=== PATIENT | female | born 1960 | race Caucasian/White ===

== ENCOUNTER 2017-02-28 19:05 | Emergency (ER) | payer MEDICARE, MEDICAID ==
[~2017-02-28] VITALS: Ht 167.6 cm; Wt 70.3 kg
[~2017-02-28 19:05] MED LIST: AMLO10TA2 PO; ATOR40TA52 PO; ATROVENT INH; CHOL1CAP50 PO; CITA-77 PO; DIVA500T12 PO; DIVA500T4 PO; EMPA1TAB PO; FLUT500M6; FURO40TA4 PO; GLIP1TAB38 PO; HYDR50CA2 PO; IBUP800T24 PO; IPRAAER5; LEVO-28 PO; LEVO125T66 PO; LISI40TA PO; METF-370 PO; METO-169 PO; NICOINH INH; OMEP20CA74 PO; POTA-167 PO; PRA25T GT; PRAM0.12; SIMV-13
[2017-02-28 21:38] LABS: Basophils # (auto) 0.1 uL; Basophils % (auto) 0.6 % (0.0-2.0); CONDITION Y; Eosinophils # (auto) 0.1 uL; Eosinophils % (auto) 1.1 % (0.0-7.0); Hematocrit 46.8 % (36.0-46.0); Hemoglobin 15.6 g/dL (12.2-16.2); Lymphocytes # (auto) 5.4 uL; Mean Corpuscular Hemoglobin 30.3 pg (28.0-32.0); Mean Corpuscular Hgb Conc. 33.3 g/dL (32.0-36.0); Mean Platelet Volume 11.4 fL (7.4-10.4); Monocytes # (auto) 0.8 uL; Monocytes % (auto) 6.8 % (0.0-12.0); Neutrophils # (auto) 5.9 uL; Neutrophils % (auto) 47.5 % (37.0-80.0); Platelet Count (auto) 222 10^3/uL (140-450); Red Cell Distribution Width 14.3 % (11.6-16.0); White Blood Cell 12.4 10^3/uL (4.4-10.8)
[2017-02-28 21:55] LABS: Albumin 3.2 g/dL (3.4-5.0); Anion Gap 12 (5-15); Aspartate Aminotransferase 21 U/L (15-37); BUN/Creatinine Ratio 21.3; Blood Urea Nitrogen 19 mg/dL (7-18); Calcium 8.8 mg/dL (8.5-10.1); Carbon Dioxide 25 mmol/L (21-32); Chloride 107 mmol/L (98-107); GFR African American 84 mL/min; GFR Non-African American 70 mL/min; Glucose 158 mg/dL (74-106); Magnesium 2.2 mg/dL (1.6-2.6); Potassium 3.4 mmol/L (3.5-5.1); Sodium 144 mmol/L (136-145)
[2017-02-28 22:00] LABS: Alkaline Phosphatase 91 U/L (45-117); Bilirubin, Total 0.3 mg/dL (0.2-1.0); Total Protein 6.4 g/dL (6.4-8.2)
[2017-03-01 01:29] LABS: Urine Bilirubin Negative (Negative); Urine Blood TRACE /uL (Negative); Urine Color Yellow (Yellow); Urine Glucose 4+ mg/dL (Normal); Urine Hyaline Cast FEW /lpf (0 - 2); Urine Ketone TRACE (Negative); Urine Mucus FEW (None Seen); Urine Nitrite Negative (Negative); Urine RBC 2 /hpf (0 - 4); Urine Squamous Epithelial Cell FEW /hpf (<5)
[2017-03-01 01:47] LABS: Amylase 27 U/L (25-115)
[2017-03-01 06:06] VITALS: BP 137/82
== END 2017-03-01 06:59 | disposition home or self-care (01) ==
LOC: EDBD 19:05 → ER 19:10
DX: J44.1 Chronic obstructive pulmonary disease with (acute) exacerbation (principal); E66.01 Morbid (severe) obesity due to excess calories; F17.210 Nicotine dependence, cigarettes, uncomplicated; F12.10 Cannabis abuse, uncomplicated; J44.9 Chronic obstructive pulmonary disease, unspecified; E11.9 Type 2 diabetes mellitus without complications; E78.5 Hyperlipidemia, unspecified; I10 Essential (primary) hypertension; E07.89 Other specified disorders of thyroid; Z98.51 Tubal ligation status; Z68.41 Body mass index [BMI] 40.0-44.9, adult
CPT/HCPCS: 36415; 51702; 74176; 80053; 80307; 81001; 82150; 83690; 83735; 84484; 85025; 93005; 94660

== ENCOUNTER 2017-03-20 16:57 | Emergency (ER) | payer MEDICARE, MEDICAID ==
[~2017-03-20] VITALS: Ht 162.6 cm; Wt 146.5 kg
[2017-03-20 21:32] VITALS: BP 168/65
== END 2017-03-20 23:02 | disposition home or self-care (01) ==
LOC: EDBD 16:57 → ER 17:02
DX: I10 Essential (primary) hypertension (principal); E66.01 Morbid (severe) obesity due to excess calories; J44.9 Chronic obstructive pulmonary disease, unspecified; I11.0 Hypertensive heart disease with heart failure; I50.9 Heart failure, unspecified; E11.9 Type 2 diabetes mellitus without complications; E78.5 Hyperlipidemia, unspecified; Z98.51 Tubal ligation status; Z68.43 Body mass index [BMI] 50.0-59.9, adult; Z90.89 Acquired absence of other organs; F17.210 Nicotine dependence, cigarettes, uncomplicated; F12.10 Cannabis abuse, uncomplicated; Z79.899 Other long term (current) drug therapy; Z88.6 Allergy status to analgesic agent
CPT/HCPCS: 70450; 82962

== ENCOUNTER 2017-06-12 12:03 | Inpatient (IN) | payer MEDICARE, MEDICAID ==
[~2017-06-12] VITALS: Ht 162.6 cm; Wt 140.5 kg
[2017-06-12] MEDS ORDERED: ALBUTEROL SULF 2.5 MG/0.5ML(0.5%) NEB SOLN HHN ONE (12:15)
[2017-06-12] MEDS ORDERED: IPRATROPIUM BROM 0.5 MG/2.5ML INH SOL HHN ONE (12:15)
[2017-06-12] MEDS ORDERED: methylPREDNISolone SOD SUCC 125 MG/2 ML VL IV ONE (12:15)
[2017-06-12 12:59] LABS: Basophils # (auto) 0.1 uL; Basophils % (auto) 0.6 % (0.0-2.0); Eosinophils # (auto) 0 uL; Eosinophils % (auto) 0.1 % (0.0-7.0); Hematocrit 36.7 % (36.0-46.0); Lymphocytes # (auto) 4.1 uL; Lymphocytes % (auto) 20.5 % (10.0-50.0); Mean Corpuscular Hemoglobin 30.5 pg (28.0-32.0); Mean Corpuscular Hgb Conc. 32.6 g/dL (32.0-36.0); Mean Corpuscular Volume 93.5 fL (80.0-100.0); Mean Platelet Volume 10.9 fL (6.9-10.8); Monocytes % (auto) 9.7 % (0.0-12.0); Neutrophils % (auto) 69.1 % (37.0-80.0); Nucleated Red Blood Cells % 0.1 %; Platelet Count (auto) 271 10^3/uL (140-450); Red Cell Distribution Width 14.3 % (11.8-14.3); White Blood Cell 20.2 10^3/uL (4.4-10.8)
[2017-06-12 13:16] LABS: Lactic Acid w/Reflex 2.1 mmol/L (0.4-2.0)
[2017-06-12 13:17] LABS: REFLEX LACTIC ACID YES OR NO YES
[2017-06-12] MEDS ORDERED: LEVOFLOXACIN 750MG 150 ML IV ONE (13:30)
[2017-06-12 13:32] LABS: Anion Gap 9 (5-15); Aspartate Aminotransferase 61 U/L (15-37); BUN/Creatinine Ratio 14.1; Blood Urea Nitrogen 9 mg/dL (7-18); Calcium 8.4 mg/dL (8.5-10.1); Carbon Dioxide 29 mmol/L (21-32); Chloride 94 mmol/L (98-107); GFR African American 123 mL/min; GFR Non-African American 102 mL/min; Glucose 141 mg/dL (74-106); Magnesium 2.3 mg/dL (1.6-2.6); Sodium 132 mmol/L (136-145)
[2017-06-12 13:36] LABS: Alkaline Phosphatase 198 U/L (45-117); Bilirubin, Total 1.2 mg/dL (0.2-1.0)
[2017-06-12 13:45] LABS: Temperature: 21.5 C (20.0-25.0)
[2017-06-12] MEDS ORDERED: ACETAMINOPHEN 325 MG TAB PO ONE (13:45)
[2017-06-12] MEDS ORDERED: DILT240C PO (14:14)
[2017-06-12] MEDS ORDERED: IPRAAER6 IN (14:14)
[2017-06-12] MEDS ORDERED: ALBUAER3 IN (14:14)
[2017-06-12] MEDS ORDERED: FLUT250M2 INH (14:14)
[2017-06-12] MEDS ORDERED: IPRA0.03 (14:14)
[2017-06-12] MEDS ORDERED: PALI9TAB2 PO (14:14)
[2017-06-12] MEDS ORDERED: INSDRIP IV (14:14)
[2017-06-12] MEDS ORDERED: INSLANTI SC (14:14)
[2017-06-12] MEDS ORDERED: AZITHROMYCIN 500MG/ 250ML 250 ML IV ONE (14:30)
[2017-06-12] MEDS ORDERED: DOCUSATE SOD 100 MG CAP PO PRN (14:30)
[2017-06-12] MEDS ORDERED: cefTRIAXone 1GM/10ml IVPUSH 10 ML IV ONE (14:30)
[2017-06-12] MEDS ORDERED: ACETAMINOPHEN 500 MG TAB PO PRN (14:30)
[2017-06-12] MEDS ORDERED: ONDANSETRON HCL 4 MG/2 ML VIAL IV PRN (14:30)
[2017-06-12] MEDS: PANTOPRAZOLE 40 MG/10 ML VIAL IV SCH (14:49)
[2017-06-12] MEDS ORDERED: FUROSEMIDE 40 MG TAB PO ONE (15:15)
[2017-06-12] MEDS ORDERED: POTASSIUM CHL 20 Meq TABLET PO ONE (15:15)
[2017-06-12] MEDS: ENOXAPARIN SOD 40 MG/0.4 ML SYRINGE SC SCH (15:34)
[2017-06-12] MEDS: MORPHINE SULF INJ 2 MG/ML SYRINGE 1ML IV PRN ×2 (15:55→23:27)
[2017-06-12] MEDS ORDERED: DEXTROSE (50%) 50ML SYRG IV PRN (16:30)
[2017-06-12] MEDS: InsuLIN REG 1unit/0.01ml Soln (100units/ml) SC SCH (17:27)
[2017-06-12] MEDS: ACCU-CHEK COMFORT CURVE STRIP VI SCH (17:27)
[2017-06-12] MEDS: IPRATROPIUM BROM 0.5 MG/2.5ML INH SOL NEB SCH ×2 (19:50→23:50)
[2017-06-12] MEDS: ALBUTEROL SULF 2.5 MG/0.5ML(0.5%) NEB SOLN NEB SCH ×2 (19:50→23:50)
[2017-06-12] MEDS: BUDESONIDE (INHALATION) 0.5 MG/2 ML NEB NEB SCH (19:50)
[2017-06-12 21:45] VITALS: BP 125/76
[2017-06-12] MEDS: methylPREDNISolone SOD SUCC 40 MG/ML VL IV SCH (23:20)
[2017-06-12] MEDS: ATORVASTATIN 20 MG TAB PO SCH (23:21)
[2017-06-12] MEDS: PRAMIPEXOLE DIHYDROCHLORIDE MO 0.25 MG TAB PO SCH (23:21)
[2017-06-12] MEDS: INSULIN DETEMIR(LEVEMIR) 1unit/0.01ml Soln (100units/ml) SC SCH (23:21)
[2017-06-13] VITALS (7 sets, daily range): BP systolic 104–118; BP diastolic 63–79
[2017-06-13] MEDS: InsuLIN REG 1unit/0.01ml Soln (100units/ml) SC SCH ×5 (00:40→23:59)
[2017-06-13] MEDS: ACCU-CHEK COMFORT CURVE STRIP VI SCH ×5 (00:40→23:58)
[2017-06-13] MEDS: traMADol HCL 50 MG TAB PO PRN ×3 (02:28→20:44)
[2017-06-13 06:22] LABS: Basophils # (auto) 0 uL; Basophils % (auto) 0.2 % (0.0-2.0); Eosinophils # (auto) 0 uL; Hematocrit 37.2 % (36.0-46.0); Hemoglobin 12.1 g/dL (12.2-16.2); Lymphocytes # (auto) 4.3 uL; Lymphocytes % (auto) 19.7 % (10.0-50.0); Mean Corpuscular Hgb Conc. 32.6 g/dL (32.0-36.0); Mean Platelet Volume 11.1 fL (6.9-10.8); Monocytes # (auto) 0.6 uL; Monocytes % (auto) 2.9 % (0.0-12.0); Neutrophils # (auto) 16.7 uL; Neutrophils % (auto) 77.2 % (37.0-80.0); Platelet Count (auto) 282 10^3/uL (140-450); White Blood Cell 21.7 10^3/uL (4.4-10.8)
[2017-06-13 06:27] LABS: BUN/Creatinine Ratio 18.9; Calcium 8.8 mg/dL (8.5-10.1); Potassium 3.1 mmol/L (3.5-5.1)
[2017-06-13] MEDS: IPRATROPIUM BROM 0.5 MG/2.5ML INH SOL NEB SCH ×3 (06:29→19:16)
[2017-06-13] MEDS: LEVOTHYROXINE SODIUM 50 MCG TAB PO SCH (06:31)
[2017-06-13] MEDS: PALIPERIDONE PO SCH (06:32)
[2017-06-13] MEDS: MORPHINE SULF INJ 2 MG/ML SYRINGE 1ML IV PRN ×2 (08:59→16:53)
[2017-06-13] MEDS: methylPREDNISolone SOD SUCC 40 MG/ML VL IV SCH ×2 (09:03→22:20)
[2017-06-13] MEDS: CITALOPRAM HYDROBR 20 MG TAB PO SCH (09:07)
[2017-06-13] MEDS: POTASSIUM CHL 20 Meq TABLET PO SCH (09:07)
[2017-06-13] MEDS: FUROSEMIDE 40 MG TAB PO SCH (09:08)
[2017-06-13] MEDS: INSULIN DETEMIR(LEVEMIR) 1unit/0.01ml Soln (100units/ml) SC SCH ×2 (09:09→22:22)
[2017-06-13] MEDS: ENOXAPARIN SOD 40 MG/0.4 ML SYRINGE SC SCH (09:09)
[2017-06-13] MEDS: PANTOPRAZOLE 40 MG/10 ML VIAL IV SCH (09:09)
[2017-06-13] MEDS ORDERED: METOPROLOL SUCCINATE XL 50 MG TAB PO SCH (10:00)
[2017-06-13] MEDS ORDERED: VANCOMYCIN PER PHARMACY 0 MG IV SCH (11:15)
[2017-06-13] MEDS: cefTRIAXone 1GM/10ml IVPUSH 10 ML IV SCH (11:17)
[2017-06-13] MEDS: AZITHROMYCIN 500MG/ 250ML 250 ML IV SCH (11:18)
[2017-06-13] MEDS ORDERED: DEXTROSE (50%) 50ML SYRG IV PRN (11:30)
[2017-06-13] MEDS ORDERED: POTASSIUM CHL 20 Meq TABLET PO ONE (11:30)
[2017-06-13] MEDS: ALBUTEROL SULF 2.5 MG/0.5ML(0.5%) NEB SOLN NEB SCH ×2 (12:15→19:16)
[2017-06-13] MEDS: VANCOMYCIN 1,500 MG in SODIUM CHL 0.9% 250 ML IV SCH ×2 (12:35→20:27)
[2017-06-13] MEDS: BUDESONIDE (INHALATION) 0.5 MG/2 ML NEB NEB SCH (19:17)
[2017-06-13] MEDS: ATORVASTATIN 20 MG TAB PO SCH (22:21)
[2017-06-13] MEDS: PRAMIPEXOLE DIHYDROCHLORIDE MO 0.25 MG TAB PO SCH (22:21)
[2017-06-13 23:58] LABS: Urine Bilirubin Negative (Negative); Urine Blood Negative /uL (Negative); Urine Color Yellow (Yellow); Urine Glucose 3+ mg/dL (Normal); Urine Hyaline Cast MANY /lpf (0 - 2); Urine Ketone Negative (Negative); Urine Mucus FEW (None Seen); Urine Nitrite Negative (Negative); Urine RBC <1 /hpf (0 - 4); Urine Squamous Epithelial Cell FEW /hpf (<5); Urine Urobilinogen Normal (Negative)
[2017-06-14] MEDS: IPRATROPIUM BROM 0.5 MG/2.5ML INH SOL NEB SCH ×4 (00:03→17:59)
[2017-06-14] MEDS: ALBUTEROL SULF 2.5 MG/0.5ML(0.5%) NEB SOLN NEB SCH ×4 (00:03→18:00)
[2017-06-14] MEDS: VANCOMYCIN 1,500 MG in SODIUM CHL 0.9% 250 ML IV SCH ×2 (03:59→12:36)
[2017-06-14 05:00] VITALS: BP 102/64
[2017-06-14] MEDS: ACCU-CHEK COMFORT CURVE STRIP VI SCH ×4 (06:20→23:56)
[2017-06-14] MEDS: InsuLIN REG 1unit/0.01ml Soln (100units/ml) SC SCH ×4 (06:20→23:55)
[2017-06-14] MEDS: PALIPERIDONE PO SCH (06:20)
[2017-06-14] MEDS: LEVOTHYROXINE SODIUM 50 MCG TAB PO SCH (06:21)
[2017-06-14 06:25] LABS: Basophils # (auto) 0 uL; Basophils % (auto) 0.1 % (0.0-2.0); Eosinophils # (auto) 0 uL; Hematocrit 37.1 % (36.0-46.0); Hemoglobin 11.9 g/dL (12.2-16.2); Lymphocytes # (auto) 4.3 uL; Mean Corpuscular Hemoglobin 30.7 pg (28.0-32.0); Mean Corpuscular Hgb Conc. 32.2 g/dL (32.0-36.0); Mean Corpuscular Volume 95.3 fL (80.0-100.0); Mean Platelet Volume 10.9 fL (6.9-10.8); Monocytes % (auto) 4.3 % (0.0-12.0); Neutrophils # (auto) 18.6 uL; Neutrophils % (auto) 77.6 % (37.0-80.0); Platelet Count (auto) 340 10^3/uL (140-450)
[2017-06-14 06:43] LABS: Calcium 8.8 mg/dL (8.5-10.1); Potassium 3.8 mmol/L (3.5-5.1)
[2017-06-14 07:30] VITALS: BP 104/63
[2017-06-14] MEDS: BUDESONIDE (INHALATION) 0.5 MG/2 ML NEB NEB SCH ×2 (07:54→18:00)
[2017-06-14] MEDS: MORPHINE SULF INJ 2 MG/ML SYRINGE 1ML IV PRN ×3 (08:26→22:48)
[2017-06-14 08:54] VITALS: BP 109/67
[2017-06-14] MEDS: ENOXAPARIN SOD 40 MG/0.4 ML SYRINGE SC SCH (10:00)
[2017-06-14] MEDS ORDERED: METOPROLOL SUCCINATE XL 50 MG TAB PO SCH (10:00)
[2017-06-14] MEDS: FUROSEMIDE 40 MG TAB PO SCH (10:00)
[2017-06-14] MEDS: POTASSIUM CHL 20 Meq TABLET PO SCH (10:31)
[2017-06-14] MEDS: methylPREDNISolone SOD SUCC 40 MG/ML VL IV SCH ×2 (10:33→22:00)
[2017-06-14] MEDS: CITALOPRAM HYDROBR 20 MG TAB PO SCH (10:33)
[2017-06-14] MEDS: PANTOPRAZOLE 40 MG/10 ML VIAL IV SCH (10:34)
[2017-06-14] MEDS: cefTRIAXone 1GM/10ml IVPUSH 10 ML IV SCH (10:34)
[2017-06-14] MEDS: AZITHROMYCIN 500MG/ 250ML 250 ML IV SCH (10:35)
[2017-06-14] MEDS: INSULIN DETEMIR(LEVEMIR) 1unit/0.01ml Soln (100units/ml) SC SCH ×2 (10:36→23:45)
[2017-06-14] MEDS ORDERED: risperiDONE 1 MG TAB PO ONE ×2 (12:15→12:45)
[2017-06-14 12:59] VITALS: BP 120/71
[2017-06-14 17:00] VITALS: BP 111/61
[2017-06-14 22:00] VITALS: BP 144/74
[2017-06-14] MEDS: ATORVASTATIN 20 MG TAB PO SCH (22:00)
[2017-06-14] MEDS: PRAMIPEXOLE DIHYDROCHLORIDE MO 0.25 MG TAB PO SCH (22:00)
[2017-06-15] MEDS: IPRATROPIUM BROM 0.5 MG/2.5ML INH SOL NEB SCH ×4 (00:59→18:48)
[2017-06-15] MEDS: ALBUTEROL SULF 2.5 MG/0.5ML(0.5%) NEB SOLN NEB SCH ×4 (00:59→18:48)
[2017-06-15] MEDS ORDERED: VANCOMYCIN IV SCH (04:00)
[2017-06-15] MEDS ORDERED: D5W 5% IV SCH (04:00)
[2017-06-15 04:11] LABS: Basophils # (auto) 0.1 uL; Basophils % (auto) 0.6 % (0.0-2.0); Eosinophils # (auto) 0 uL; Hematocrit 36.2 % (36.0-46.0); Hemoglobin 11.7 g/dL (12.2-16.2); Lymphocytes # (auto) 3.8 uL; Lymphocytes % (auto) 19.2 % (10.0-50.0); Mean Corpuscular Hemoglobin 30.7 pg (28.0-32.0); Mean Corpuscular Hgb Conc. 32.4 g/dL (32.0-36.0); Mean Corpuscular Volume 94.9 fL (80.0-100.0); Mean Platelet Volume 11.2 fL (6.9-10.8); Monocytes # (auto) 0.9 uL; Monocytes % (auto) 4.5 % (0.0-12.0); Neutrophils # (auto) 15.2 uL; Neutrophils % (auto) 75.7 % (37.0-80.0); Nucleated Red Blood Cells % 0.1 %; Platelet Count (auto) 320 10^3/uL (140-450); Red Cell Distribution Width 14.3 % (11.8-14.3)
[2017-06-15 04:12] LABS: BUN/Creatinine Ratio 36.3; Calcium 8.8 mg/dL (8.5-10.1); Potassium 4.2 mmol/L (3.5-5.1)
[2017-06-15 05:03] VITALS: BP 125/66
[2017-06-15] MEDS: ACCU-CHEK COMFORT CURVE STRIP VI SCH ×4 (06:30→22:56)
[2017-06-15] MEDS: InsuLIN REG 1unit/0.01ml Soln (100units/ml) SC SCH ×4 (06:56→22:55)
[2017-06-15] MEDS: traMADol HCL 50 MG TAB PO PRN (07:14)
[2017-06-15] MEDS: LEVOTHYROXINE SODIUM 50 MCG TAB PO SCH (07:15)
[2017-06-15] MEDS: BUDESONIDE (INHALATION) 0.5 MG/2 ML NEB NEB SCH ×2 (07:30→18:48)
[2017-06-15 09:25] VITALS: BP 120/70
[2017-06-15] MEDS ORDERED: risperiDONE 1 MG TAB PO SCH (10:00)
[2017-06-15] MEDS: cefTRIAXone 1GM/10ml IVPUSH 10 ML IV SCH (10:49)
[2017-06-15] MEDS: ENOXAPARIN SOD 40 MG/0.4 ML SYRINGE SC SCH (10:49)
[2017-06-15] MEDS: methylPREDNISolone SOD SUCC 40 MG/ML VL IV SCH (10:49)
[2017-06-15] MEDS: AZITHROMYCIN 500MG/ 250ML 250 ML IV SCH (10:49)
[2017-06-15] MEDS: CITALOPRAM HYDROBR 20 MG TAB PO SCH (10:50)
[2017-06-15] MEDS: POTASSIUM CHL 20 Meq TABLET PO SCH (10:50)
[2017-06-15] MEDS: MORPHINE SULF INJ 2 MG/ML SYRINGE 1ML IV PRN (10:50)
[2017-06-15] MEDS: PANTOPRAZOLE 40 MG TAB PO SCH (10:50)
[2017-06-15] MEDS: FUROSEMIDE 40 MG TAB PO SCH (10:50)
[2017-06-15] MEDS: INSULIN DETEMIR(LEVEMIR) 1unit/0.01ml Soln (100units/ml) SC SCH ×3 (10:51→22:57)
[2017-06-15] MEDS: risperiDONE 1 MG TAB PO SCH (10:57)
[2017-06-15] MEDS ORDERED: guaiFENesin 200 MG/10 ML UD PO PRN (12:30)
[2017-06-15 12:57] VITALS: BP 109/64
[2017-06-15 16:34] VITALS: BP 109/77
[2017-06-15 21:49] VITALS: BP 120/65
[2017-06-15] MEDS: VANCOMYCIN 1,500 MG in SODIUM CHL 0.9% 250 ML IV SCH (22:28)
[2017-06-15] MEDS: PRAMIPEXOLE DIHYDROCHLORIDE MO 0.25 MG TAB PO SCH (22:54)
[2017-06-15] MEDS: ATORVASTATIN 20 MG TAB PO SCH (22:54)
[2017-06-16] MEDS: ALBUTEROL SULF 2.5 MG/0.5ML(0.5%) NEB SOLN NEB SCH ×4 (00:27→18:59)
[2017-06-16] MEDS: IPRATROPIUM BROM 0.5 MG/2.5ML INH SOL NEB SCH ×4 (00:27→18:59)
[2017-06-16 05:00] VITALS: BP 135/78
[2017-06-16 06:26] LABS: Hematocrit 38.7 % (36.0-46.0); Hemoglobin 12.8 g/dL (12.2-16.2); Mean Corpuscular Hemoglobin 31.3 pg (28.0-32.0); Mean Corpuscular Hgb Conc. 33.2 g/dL (32.0-36.0); Mean Corpuscular Volume 94.1 fL (80.0-100.0); Mean Platelet Volume 10.4 fL (6.9-10.8); Platelet Count (auto) 370 10^3/uL (140-450); White Blood Cell 16.7 10^3/uL (4.4-10.8)
[2017-06-16 06:28] LABS: Metamyelocytes % 0; Myelocytes % 0; Promyelocytes % 0
[2017-06-16] MEDS: MORPHINE SULF INJ 2 MG/ML SYRINGE 1ML IV PRN ×2 (06:31→10:32)
[2017-06-16] MEDS: ACCU-CHEK COMFORT CURVE STRIP VI SCH ×3 (06:32→17:56)
[2017-06-16] MEDS: LEVOTHYROXINE SODIUM 50 MCG TAB PO SCH (06:32)
[2017-06-16] MEDS: InsuLIN REG 1unit/0.01ml Soln (100units/ml) SC SCH ×3 (06:33→17:57)
[2017-06-16 06:47] LABS: BUN/Creatinine Ratio 39.7; Calcium 8.9 mg/dL (8.5-10.1); Potassium 3.9 mmol/L (3.5-5.1)
[2017-06-16] MEDS: BUDESONIDE (INHALATION) 0.5 MG/2 ML NEB NEB SCH ×2 (06:56→18:59)
[2017-06-16 07:00] LABS: Platelet Estimate Adequate; RBC Morphology Normal; Reactive Lymphocytes 4
[2017-06-16 09:00] VITALS: BP 126/67
[2017-06-16] MEDS: cefTRIAXone 1GM/10ml IVPUSH 10 ML IV SCH (09:12)
[2017-06-16] MEDS: PANTOPRAZOLE 40 MG TAB PO SCH (09:57)
[2017-06-16] MEDS: POTASSIUM CHL 20 Meq TABLET PO SCH (09:57)
[2017-06-16] MEDS: CITALOPRAM HYDROBR 20 MG TAB PO SCH (09:57)
[2017-06-16] MEDS: predniSONE 20 MG TAB PO SCH (09:58)
[2017-06-16] MEDS: FUROSEMIDE 40 MG TAB PO SCH (09:58)
[2017-06-16] MEDS: risperiDONE 1 MG TAB PO SCH (09:59)
[2017-06-16] MEDS: ENOXAPARIN SOD 40 MG/0.4 ML SYRINGE SC SCH (10:00)
[2017-06-16] MEDS: PRO-STAT 64 30ML PO SCH (10:01)
[2017-06-16] MEDS: AZITHROMYCIN 500MG/ 250ML 250 ML IV SCH (10:07)
[2017-06-16] MEDS: INSULIN DETEMIR(LEVEMIR) 1unit/0.01ml Soln (100units/ml) SC SCH ×2 (10:31→21:48)
[2017-06-16 13:00] VITALS: BP 130/83
[2017-06-16 14:51] VITALS: BP 130/83
[2017-06-16] MEDS: VANCOMYCIN 1,500 MG in SODIUM CHL 0.9% 250 ML IV SCH ×2 (16:20→18:25)
[2017-06-16] MEDS: traMADol HCL 50 MG TAB PO PRN (16:21)
[2017-06-16 16:23] VITALS: BP 127/71
[2017-06-16] MEDS ORDERED: VALPROIC ACID 250 MG CAP PO ONE (21:39)
[2017-06-16] MEDS: PRAMIPEXOLE DIHYDROCHLORIDE MO 0.25 MG TAB PO SCH (21:43)
[2017-06-16] MEDS: ATORVASTATIN 20 MG TAB PO SCH (21:43)
[2017-06-16 22:00] VITALS: BP 113/58
[2017-06-17] MEDS: InsuLIN REG 1unit/0.01ml Soln (100units/ml) SC SCH ×5 (00:01→23:50)
[2017-06-17] MEDS: IPRATROPIUM BROM 0.5 MG/2.5ML INH SOL NEB SCH ×4 (00:38→18:23)
[2017-06-17] MEDS: ALBUTEROL SULF 2.5 MG/0.5ML(0.5%) NEB SOLN NEB SCH ×4 (00:38→18:22)
[2017-06-17 05:00] VITALS: BP 126/72
[2017-06-17] MEDS: ACCU-CHEK COMFORT CURVE STRIP VI SCH ×5 (06:02→23:50)
[2017-06-17 06:13] LABS: Hematocrit 38.1 % (36.0-46.0); Hemoglobin 12.3 g/dL (12.2-16.2); Mean Corpuscular Hemoglobin 30.5 pg (28.0-32.0); Mean Corpuscular Hgb Conc. 32.4 g/dL (32.0-36.0); Mean Corpuscular Volume 94.2 fL (80.0-100.0); Mean Platelet Volume 10.4 fL (6.9-10.8); Platelet Count (auto) 380 10^3/uL (140-450); Red Cell Distribution Width 14.3 % (11.8-14.3); White Blood Cell 13.8 10^3/uL (4.4-10.8)
[2017-06-17 06:16] LABS: Metamyelocytes % 0; Myelocytes % 0; Promyelocytes % 0; Reactive Lymphocytes 0
[2017-06-17] MEDS: LEVOTHYROXINE SODIUM 50 MCG TAB PO SCH (06:16)
[2017-06-17 07:39] LABS: Platelet Estimate Adequate; RBC Morphology Normal
[2017-06-17 09:03] VITALS: BP 133/73
[2017-06-17] MEDS: PRO-STAT 64 30ML PO SCH (10:00)
[2017-06-17] MEDS: ENOXAPARIN SOD 40 MG/0.4 ML SYRINGE SC SCH (10:00)
[2017-06-17] MEDS: cefTRIAXone 1GM/10ml IVPUSH 10 ML IV SCH (11:32)
[2017-06-17] MEDS: AZITHROMYCIN 500MG/ 250ML 250 ML IV SCH (11:33)
[2017-06-17] MEDS: predniSONE 20 MG TAB PO SCH (11:33)
[2017-06-17] MEDS: POTASSIUM CHL 20 Meq TABLET PO SCH (11:34)
[2017-06-17] MEDS: FUROSEMIDE 40 MG TAB PO SCH (11:34)
[2017-06-17] MEDS: CITALOPRAM HYDROBR 20 MG TAB PO SCH (11:34)
[2017-06-17] MEDS: risperiDONE 1 MG TAB PO SCH (11:35)
[2017-06-17] MEDS: PANTOPRAZOLE 40 MG TAB PO SCH (11:35)
[2017-06-17] MEDS: INSULIN DETEMIR(LEVEMIR) 1unit/0.01ml Soln (100units/ml) SC SCH ×2 (11:36→21:32)
[2017-06-17] MEDS: VANCOMYCIN 1,500 MG in D5W 5% 250 ML IV SCH (12:30)
[2017-06-17] MEDS: traMADol HCL 50 MG TAB PO PRN (12:32)
[2017-06-17 12:52] VITALS: BP 118/56
[2017-06-17] MEDS: MORPHINE SULF INJ 2 MG/ML SYRINGE 1ML IV PRN (16:30)
[2017-06-17] MEDS: BUDESONIDE (INHALATION) 0.5 MG/2 ML NEB NEB SCH (18:23)
[2017-06-17] MEDS: ATORVASTATIN 20 MG TAB PO SCH (21:27)
[2017-06-17] MEDS: PRAMIPEXOLE DIHYDROCHLORIDE MO 0.25 MG TAB PO SCH (21:27)
[2017-06-17 21:55] VITALS: BP 133/71
[2017-06-18] MEDS: ALBUTEROL SULF 2.5 MG/0.5ML(0.5%) NEB SOLN NEB SCH ×5 (00:11→19:25)
[2017-06-18] MEDS: IPRATROPIUM BROM 0.5 MG/2.5ML INH SOL NEB SCH ×4 (00:11→19:25)
[2017-06-18] MEDS: VANCOMYCIN 1,500 MG in D5W 5% 250 ML IV SCH (04:14)
[2017-06-18 05:00] VITALS: BP 120/64
[2017-06-18] MEDS: InsuLIN REG 1unit/0.01ml Soln (100units/ml) SC SCH ×3 (06:00→18:51)
[2017-06-18] MEDS: ACCU-CHEK COMFORT CURVE STRIP VI SCH ×3 (06:30→18:00)
[2017-06-18] MEDS: LEVOTHYROXINE SODIUM 50 MCG TAB PO SCH (06:31)
[2017-06-18] MEDS: BUDESONIDE (INHALATION) 0.5 MG/2 ML NEB NEB SCH ×2 (07:20→19:25)
[2017-06-18 09:00] VITALS: BP 160/71
[2017-06-18] MEDS: PRO-STAT 64 30ML PO SCH (10:00)
[2017-06-18] MEDS: ENOXAPARIN SOD 40 MG/0.4 ML SYRINGE SC SCH (10:00)
[2017-06-18] MEDS: cefTRIAXone 1GM/10ml IVPUSH 10 ML IV SCH (10:53)
[2017-06-18] MEDS: AZITHROMYCIN 500MG/ 250ML 250 ML IV SCH (10:53)
[2017-06-18] MEDS: CITALOPRAM HYDROBR 20 MG TAB PO SCH (10:54)
[2017-06-18] MEDS: POTASSIUM CHL 20 Meq TABLET PO SCH (10:54)
[2017-06-18] MEDS: predniSONE 20 MG TAB PO SCH (10:54)
[2017-06-18] MEDS: risperiDONE 1 MG TAB PO SCH (10:55)
[2017-06-18] MEDS: PANTOPRAZOLE 40 MG TAB PO SCH (10:55)
[2017-06-18] MEDS: FUROSEMIDE 40 MG TAB PO SCH (10:55)
[2017-06-18] MEDS: INSULIN DETEMIR(LEVEMIR) 1unit/0.01ml Soln (100units/ml) SC SCH ×2 (10:56→22:27)
[2017-06-18] MEDS: traMADol HCL 50 MG TAB PO PRN (12:43)
[2017-06-18 13:00] VITALS: BP 146/81
[2017-06-18] MEDS ORDERED: VANCOMYCIN 1,500 MG in D5W 5% 250 ML IV SCH (16:00)
[2017-06-18 17:00] VITALS: BP 140/75
[2017-06-18] MEDS: MORPHINE SULF INJ 2 MG/ML SYRINGE 1ML IV PRN (17:32)
[2017-06-18 22:00] VITALS: BP 140/61
[2017-06-18] MEDS: PRAMIPEXOLE DIHYDROCHLORIDE MO 0.25 MG TAB PO SCH (22:08)
[2017-06-18] MEDS: ATORVASTATIN 20 MG TAB PO SCH (22:26)
[2017-06-19] MEDS: ALBUTEROL SULF 2.5 MG/0.5ML(0.5%) NEB SOLN NEB SCH ×3 (00:03→19:20)
[2017-06-19] MEDS: IPRATROPIUM BROM 0.5 MG/2.5ML INH SOL NEB SCH ×4 (00:03→19:19)
[2017-06-19] MEDS: ACCU-CHEK COMFORT CURVE STRIP VI SCH ×5 (00:05→23:44)
[2017-06-19] MEDS: InsuLIN REG 1unit/0.01ml Soln (100units/ml) SC SCH ×5 (00:05→23:43)
[2017-06-19 05:00] VITALS: BP 149/72
[2017-06-19] MEDS: LEVOTHYROXINE SODIUM 50 MCG TAB PO SCH (06:24)
[2017-06-19 06:59] LABS: Basophils # (auto) 0 uL; Basophils % (auto) 0.1 % (0.0-2.0); Eosinophils # (auto) 0.1 uL; Eosinophils % (auto) 0.9 % (0.0-7.0); Hemoglobin 12.1 g/dL (12.2-16.2); Lymphocytes # (auto) 5.8 uL; Mean Corpuscular Hemoglobin 30.1 pg (28.0-32.0); Mean Corpuscular Hgb Conc. 31.9 g/dL (32.0-36.0); Mean Corpuscular Volume 94.5 fL (80.0-100.0); Mean Platelet Volume 9.9 fL (6.9-10.8); Monocytes # (auto) 0.9 uL; Neutrophils # (auto) 7.7 uL; Nucleated Red Blood Cells % 0.1 %; Platelet Count (auto) 350 10^3/uL (140-450); Red Cell Distribution Width 14.3 % (11.8-14.3); White Blood Cell 14.6 10^3/uL (4.4-10.8)
[2017-06-19] MEDS: BUDESONIDE (INHALATION) 0.5 MG/2 ML NEB NEB SCH ×2 (07:07→19:20)
[2017-06-19 07:25] LABS: Albumin 2.2 g/dL (3.4-5.0); BUN/Creatinine Ratio 37.1; Bilirubin, Total 0.2 mg/dL (0.2-1.0); Calcium 8.6 mg/dL (8.5-10.1); Potassium 3.7 mmol/L (3.5-5.1); Total Protein 5.2 g/dL (6.4-8.2)
[2017-06-19 08:13] VITALS: BP 99/41
[2017-06-19] MEDS ORDERED: predniSONE 20 MG TAB PO SCH (10:00)
[2017-06-19] MEDS: ENOXAPARIN SOD 40 MG/0.4 ML SYRINGE SC SCH (10:00)
[2017-06-19] MEDS ORDERED: AZITHROMYCIN 250 MG TAB PO SCH (10:00)
[2017-06-19] MEDS: cefTRIAXone 1GM/10ml IVPUSH 10 ML IV SCH (10:16)
[2017-06-19] MEDS: FUROSEMIDE 40 MG TAB PO SCH (10:20)
[2017-06-19] MEDS: CITALOPRAM HYDROBR 20 MG TAB PO SCH (10:20)
[2017-06-19] MEDS: POTASSIUM CHL 20 Meq TABLET PO SCH (10:20)
[2017-06-19] MEDS: PANTOPRAZOLE 40 MG TAB PO SCH (10:21)
[2017-06-19] MEDS: risperiDONE 1 MG TAB PO SCH (10:23)
[2017-06-19] MEDS: PRO-STAT 64 30ML PO SCH (10:36)
[2017-06-19] MEDS: INSULIN DETEMIR(LEVEMIR) 1unit/0.01ml Soln (100units/ml) SC SCH ×2 (10:51→21:55)
[2017-06-19 11:13] VITALS: BP 109/66
[2017-06-19] MEDS ORDERED: MORPHINE SULF INJ 2 MG/ML SYRINGE 1ML IV PRN (12:00)
[2017-06-19] MEDS ORDERED: traMADol HCL 50 MG TAB PO PRN (12:00)
[2017-06-19] MEDS ORDERED: LORazepam 0.5 MG TAB PO PRN (12:15)
[2017-06-19 16:00] VITALS: BP 109/66
[2017-06-19 16:38] VITALS: BP 133/75
[2017-06-19] MEDS: PRAMIPEXOLE DIHYDROCHLORIDE MO 0.25 MG TAB PO SCH (21:54)
[2017-06-19] MEDS: ATORVASTATIN 20 MG TAB PO SCH (21:54)
[2017-06-19 22:00] VITALS: BP 108/61
[2017-06-20] MEDS: IPRATROPIUM BROM 0.5 MG/2.5ML INH SOL NEB SCH ×2 (00:12→06:46)
[2017-06-20] MEDS: ALBUTEROL SULF 2.5 MG/0.5ML(0.5%) NEB SOLN NEB SCH ×2 (00:12→06:46)
[2017-06-20 04:43] VITALS: BP 116/62
[2017-06-20] MEDS: InsuLIN REG 1unit/0.01ml Soln (100units/ml) SC SCH (05:37)
[2017-06-20] MEDS: ACCU-CHEK COMFORT CURVE STRIP VI SCH (05:37)
[2017-06-20] MEDS: LEVOTHYROXINE SODIUM 50 MCG TAB PO SCH (06:14)
[2017-06-20 08:22] VITALS: BP 128/51
== END 2017-06-20 08:45 | disposition left against medical advice (07) | DRG 871 ==
LOC: EDBD 12:03 → ER 12:03 → OVERFLOW 12:04 → WEST WING 21:39 → TELE-WESTW 06-14 13:19
PROVIDERS: ADMIT Internal Medicine; ATTEND Internal Medicine
PROC: 5A09457 Assistance with Respiratory Ventilation, 24-96 Consecutive Hours, Continuous Positive Airway Pressure (ICD-10-PCS; principal; 2017-06-12)
DX: A40.9 Streptococcal sepsis, unspecified (principal); J96.20 Acute and chronic respiratory failure, unspecified whether with hypoxia or hypercapnia; I11.0 Hypertensive heart disease with heart failure; J15.4 Pneumonia due to other streptococci; I50.42 Chronic combined systolic (congestive) and diastolic (congestive) heart failure; E44.0 Moderate protein-calorie malnutrition; J44.1 Chronic obstructive pulmonary disease with (acute) exacerbation; Z68.41 Body mass index [BMI] 40.0-44.9, adult; J44.0 Chronic obstructive pulmonary disease with (acute) lower respiratory infection; E66.2 Morbid (severe) obesity with alveolar hypoventilation; E11.65 Type 2 diabetes mellitus with hyperglycemia; E03.9 Hypothyroidism, unspecified; F20.9 Schizophrenia, unspecified; Z53.21 Procedure and treatment not carried out due to patient leaving prior to being seen by health care provider; E78.5 Hyperlipidemia, unspecified; F17.210 Nicotine dependence, cigarettes, uncomplicated; F31.9 Bipolar disorder, unspecified; K59.00 Constipation, unspecified; I25.10 Atherosclerotic heart disease of native coronary artery without angina pectoris; Z79.4 Long term (current) use of insulin; Z79.51 Long term (current) use of inhaled steroids; Z88.5 Allergy status to narcotic agent; Z79.899 Other long term (current) drug therapy; Z80.0 Family history of malignant neoplasm of digestive organs; Z83.3 Family history of diabetes mellitus; Z91.19 Patient's noncompliance with other medical treatment and regimen
CPT/HCPCS: 36415; 71010; 71020; 71250; 80048; 80053; 80202; 81001; 82962; 83036; 83605; 83735; 83880; 84443; 84484; 85007; 85025; 85027; 87040; 87070; 87077; 87186; 87205; 93005; 93306; 94640; 94644; 94660; 94761; 96365; 96372; 96375; C9113; J1815; J1956; J2405; J7060

== ENCOUNTER 2017-07-06 09:02 | Emergency (ER) | payer MEDICARE, MEDICAID ==
[~2017-07-06] VITALS: Ht 165.1 cm; Wt 152.0 kg
[~2017-07-06 09:02] MED LIST changes: +ALBUAER3 IN; -ATROVENT INH; -CHOL1CAP50 PO; +DILT240C PO; -DIVA500T4 PO; -EMPA1TAB PO; +FLUT250M2 INH; -FLUT500M6; -GLIP1TAB38 PO; -IBUP800T24 PO; +INSLANTI SC; +INSREG3 SC; +IPRA0.03; -IPRAAER5; +IPRAAER6 IN; -LEVO-28 PO; -NICOINH INH; +PALI9TAB2 PO; -PRAM0.12; -SIMV-13
[2017-07-06 10:30] VITALS: BP 123/76
[2017-07-06] MEDS ORDERED: HYDROcodone-ACET 7.5/325MG TAB PO ONE (11:00)
== END 2017-07-06 11:24 | disposition home or self-care (01) ==
LOC: EDBD 09:02 → ER 09:05
DX: S92.141A Displaced dome fracture of right talus, initial encounter for closed fracture (principal); S93.401A Sprain of unspecified ligament of right ankle, initial encounter; Z88.6 Allergy status to analgesic agent; Z88.5 Allergy status to narcotic agent; J44.9 Chronic obstructive pulmonary disease, unspecified; E11.9 Type 2 diabetes mellitus without complications; E78.5 Hyperlipidemia, unspecified; E07.89 Other specified disorders of thyroid; I11.0 Hypertensive heart disease with heart failure; I50.9 Heart failure, unspecified; Z98.51 Tubal ligation status; Z90.89 Acquired absence of other organs; Z79.4 Long term (current) use of insulin; Z79.899 Other long term (current) drug therapy; W01.0XXA Fall on same level from slipping, tripping and stumbling without subsequent striking against object, initial encounter; Y93.89 Activity, other specified; Y99.8 Other external cause status; Y92.89 Other specified places as the place of occurrence of the external cause
CPT/HCPCS: 29515; 73610

== ENCOUNTER 2017-12-05 11:39 | Inpatient (IN) | payer MEDICARE, MEDICAID ==
[~2017-12-05] VITALS: Ht 165.1 cm; Wt 136.3 kg
[2017-12-05] MEDS ORDERED: cloNIDine HCL 0.1 MG TAB ONE (12:07)
[2017-12-05] MEDS ORDERED: cloNIDine HCL 0.1 MG TAB PO ONE (12:15)
[2017-12-05 13:43] LABS: Basophils # (auto) 0 uL; Basophils % (auto) 0.2 % (0.0-2.0); Eosinophils # (auto) 0.1 uL; Hematocrit 47.2 % (36.0-46.0); Hemoglobin 15.5 g/dL (12.2-16.2); Mean Corpuscular Hemoglobin 29.3 pg (28.0-32.0); Mean Corpuscular Hgb Conc. 32.9 g/dL (32.0-36.0); Mean Corpuscular Volume 89.3 fL (80.0-100.0); Monocytes # (auto) 0.8 uL; Neutrophils # (auto) 5.4 uL; Neutrophils % (auto) 47.8 % (37.0-80.0); Nucleated Red Blood Cells % 0.1 %; Platelet Count (auto) 216 10^3/uL (140-450); Red Blood Cells 5.29 10^6/uL (4.0-5.20); Red Cell Distribution Width 14.5 % (11.8-14.3); White Blood Cell 11.3 10^3/uL (4.4-10.8)
[2017-12-05 13:49] LABS: INR 0.94 (0.9-1.15); Partial Thromboplastin Time 26.4 sec (23.78-33.04); Prothrombin Time 10.1 sec (9.27-12.13)
[2017-12-05 13:52] LABS: Alanine Aminotransferase 21 U/L (13-56); Albumin 3.4 g/dL (3.4-5.0); Anion Gap 10 (5-15); Aspartate Aminotransferase 14 U/L (15-37); BUN/Creatinine Ratio 15.9; Blood Urea Nitrogen 11 mg/dL (7-18); Calcium 8.8 mg/dL (8.5-10.1); Carbon Dioxide 28 mmol/L (21-32); Chloride 104 mmol/L (98-107); GFR African American 113 mL/min; GFR Non-African American 93 mL/min; Glucose 114 mg/dL (74-106); Potassium 3.3 mmol/L (3.5-5.1); Sodium 142 mmol/L (136-145)
[2017-12-05 13:58] LABS: Alkaline Phosphatase 113 U/L (45-117); Bilirubin, Total 0.6 mg/dL (0.2-1.0); Total Protein 6.9 g/dL (6.4-8.2)
[2017-12-05] MEDS ORDERED: POTASSIUM CHL 20 Meq TABLET PO ONE ×3 (14:45→20:29)
[2017-12-05] MEDS ORDERED: ASPirin 81 mg TAB PO ONE (14:45)
[2017-12-05] MEDS ORDERED: PROMETHAZINE HCL 25 MG/ML 1ML IV PRN (15:00)
[2017-12-05] MEDS ORDERED: DEXTROSE (50%) 50ML SYRG IV PRN (15:00)
[2017-12-05] MEDS ORDERED: NITROGLYCERIN 0.4 MG SL TAB SL PRN (15:00)
[2017-12-05] MEDS ORDERED: LORazepam 0.5 MG TAB PO PRN (15:00)
[2017-12-05] MEDS ORDERED: ACETAMINOPHEN 500 MG TAB PO PRN (15:00)
[2017-12-05] MEDS ORDERED: TEMAZEPAM 15 MG CAP PO PRN (15:00)
[2017-12-05] MEDS ORDERED: ALBUTEROL SULF 2.5 MG/0.5ML(0.5%) NEB SOLN NEB PRN (15:00)
[2017-12-05] MEDS ORDERED: MORPHINE SULFATE 10 MG/ML INJ 1ML SDV IV PRN ×3 (15:00)
[2017-12-05 15:25] VITALS: BP 167/106
[2017-12-05 15:41] LABS: Folate (Folic Acid) 19.1 ng/mL (5.38-24)
[2017-12-05] MEDS ORDERED: LISINOPRIL 10 MG TAB PO ONE (16:00)
[2017-12-05] MEDS: ALBUTEROL SULF 2.5 MG/0.5ML(0.5%) NEB SOLN NEB SCH (19:03)
[2017-12-05] MEDS: IPRATROPIUM BROM 0.5 MG/2.5ML INH SOL NEB SCH (19:03)
[2017-12-05] MEDS: BUDESONIDE (INHALATION) 0.5 MG/2 ML NEB NEB SCH (19:03)
[2017-12-05] MEDS: FUROSEMIDE 40 MG/4 ML VIAL IV SCH (20:43)
[2017-12-05] MEDS: InsuLIN REG 1unit/0.01ml Soln (100units/ml) SC SCH ×2 (20:58→22:53)
[2017-12-05] MEDS: ACCU-CHEK COMFORT CURVE STRIP VI SCH ×2 (20:58→22:00)
[2017-12-05] MEDS ORDERED: LORazepam 2MG/ML-1ML VIAL IV ONE (21:30)
[2017-12-05] MEDS ORDERED: PATIENTS OWN MEDICATION (Fluticasone-Salmeterol (Advair Diskus 250/50) 1 PUFF) INH SCH (22:00)
[2017-12-05] MEDS: SODIUM CHLOR 0.9% PF (SALINE LOCK) 10ML VIAL/SYR IV SCH (22:51)
[2017-12-05] MEDS: ATORVASTATIN 20 MG TAB PO SCH (22:52)
[2017-12-05] MEDS: POTASSIUM CHL 20 Meq TABLET PO SCH (22:52)
[2017-12-05] MEDS: hydrOXYzine 25 MG TAB or CAP PO SCH (22:52)
[2017-12-05] MEDS: INSULIN LANTUS (GLARGINE) 1 /0.01ml (100units/ml) SC SCH (22:53)
[2017-12-05 23:56] VITALS: BP 176/86
[2017-12-06] VITALS (7 sets, daily range): BP systolic 117–193; BP diastolic 33–111
[2017-12-06] MEDS: ALBUTEROL SULF 2.5 MG/0.5ML(0.5%) NEB SOLN NEB SCH ×4 (01:32→20:05)
[2017-12-06] MEDS: IPRATROPIUM BROM 0.5 MG/2.5ML INH SOL NEB SCH ×4 (01:32→20:05)
[2017-12-06 05:30] LABS: Basophils # (auto) 0 uL; Basophils % (auto) 0.2 % (0.0-2.0); Eosinophils # (auto) 0.1 uL; Eosinophils % (auto) 1.3 % (0.0-7.0); Hematocrit 42.4 % (36.0-46.0); Hemoglobin 14.3 g/dL (12.2-16.2); Lymphocytes # (auto) 4.3 uL; Lymphocytes % (auto) 47.5 % (10.0-50.0); Mean Corpuscular Hemoglobin 30.1 pg (28.0-32.0); Mean Corpuscular Hgb Conc. 33.7 g/dL (32.0-36.0); Mean Corpuscular Volume 89.3 fL (80.0-100.0); Monocytes # (auto) 0.6 uL; Neutrophils # (auto) 3.9 uL; Nucleated Red Blood Cells % 0.2 %; Platelet Count (auto) 178 10^3/uL (140-450); Red Blood Cells 4.75 10^6/uL (4.0-5.20); Red Cell Distribution Width 14.6 % (11.8-14.3)
[2017-12-06 05:53] LABS: BUN/Creatinine Ratio 21.4; Bilirubin, Total 0.4 mg/dL (0.2-1.0); Calcium 8.5 mg/dL (8.5-10.1); Potassium 3.5 mmol/L (3.5-5.1); Total Protein 5.9 g/dL (6.4-8.2)
[2017-12-06] MEDS: BUDESONIDE (INHALATION) 0.5 MG/2 ML NEB NEB SCH ×2 (06:00→20:04)
[2017-12-06] MEDS: SODIUM CHLOR 0.9% PF (SALINE LOCK) 10ML VIAL/SYR IV SCH ×3 (06:26→22:00)
[2017-12-06] MEDS: FUROSEMIDE 40 MG/4 ML VIAL IV SCH ×2 (06:26→17:50)
[2017-12-06] MEDS: InsuLIN REG 1unit/0.01ml Soln (100units/ml) SC SCH ×4 (06:27→22:00)
[2017-12-06] MEDS: ACCU-CHEK COMFORT CURVE STRIP VI SCH ×4 (06:29→22:00)
[2017-12-06] MEDS ORDERED: LEVOTHYROXINE SODIUM 25 MCG TAB PO SCH (07:00)
[2017-12-06] MEDS ORDERED: POTASSIUM CHL 10 Meq TABLET PO SCH (10:00)
[2017-12-06] MEDS: NITROGLYCERIN 0.2MG/HR TOPICAL PATCH TD SCH (10:00)
[2017-12-06] MEDS ORDERED: amLODIPine BESYLATE 5 MG TAB PO SCH (10:00)
[2017-12-06] MEDS: METOPROLOL SUCCINATE XL 50 MG TAB PO SCH (10:00)
[2017-12-06] MEDS ORDERED: FUROSEMIDE 40 MG TAB PO SCH (10:00)
[2017-12-06] MEDS: CITALOPRAM HYDROBR 20 MG TAB PO SCH (10:48)
[2017-12-06] MEDS: LISINOPRIL 20 MG TAB PO SCH (10:49)
[2017-12-06] MEDS: PANTOPRAZOLE 40 MG TAB PO SCH (10:49)
[2017-12-06] MEDS: DILTIAZEM HCL 120MG ER CAP PO SCH (10:49)
[2017-12-06] MEDS: hydrOXYzine 25 MG TAB or CAP PO SCH ×2 (10:50→22:42)
[2017-12-06] MEDS: POTASSIUM CHL 20 Meq TABLET PO SCH ×2 (10:50→22:42)
[2017-12-06] MEDS: PRAMIPEXOLE DIHYDROCHLORIDE MO 0.25 MG TAB PO SCH (10:50)
[2017-12-06] MEDS: ENOXAPARIN SOD 40 MG/0.4 ML SYRINGE SC SCH (10:51)
[2017-12-06] MEDS: INSULIN LANTUS (GLARGINE) 1 /0.01ml (100units/ml) SC SCH ×2 (10:53→22:00)
[2017-12-06] MEDS ORDERED: ASPirin 325 MG TAB ONE (10:58)
[2017-12-06] MEDS ORDERED: ASPirin-EC 81 mg tab PO ONE (11:06)
[2017-12-06] MEDS: ASPirin 81 mg TAB PO SCH (11:07)
[2017-12-06] MEDS: ATORVASTATIN 20 MG TAB PO SCH (22:42)
[2017-12-07] MEDS: IPRATROPIUM BROM 0.5 MG/2.5ML INH SOL NEB SCH ×4 (01:05→18:47)
[2017-12-07] MEDS: ALBUTEROL SULF 2.5 MG/0.5ML(0.5%) NEB SOLN NEB SCH ×4 (01:05→18:47)
[2017-12-07 05:00] VITALS: BP 122/65
[2017-12-07] MEDS: SODIUM CHLOR 0.9% PF (SALINE LOCK) 10ML VIAL/SYR IV SCH ×3 (06:00→22:29)
[2017-12-07] MEDS: FUROSEMIDE 40 MG/4 ML VIAL IV SCH ×2 (06:00→17:49)
[2017-12-07] MEDS: BUDESONIDE (INHALATION) 0.5 MG/2 ML NEB NEB SCH ×2 (06:12→18:47)
[2017-12-07 06:13] LABS: Hematocrit 42.6 % (36.0-46.0); Hemoglobin 13.9 g/dL (12.2-16.2); Mean Corpuscular Hemoglobin 29.6 pg (28.0-32.0); Mean Corpuscular Hgb Conc. 32.7 g/dL (32.0-36.0); Mean Corpuscular Volume 90.6 fL (80.0-100.0); Platelet Count (auto) 189 10^3/uL (140-450); Red Cell Distribution Width 14.3 % (11.8-14.3); White Blood Cell 8.3 10^3/uL (4.4-10.8)
[2017-12-07 06:19] LABS: Calcium 8.8 mg/dL (8.5-10.1); Potassium 3.5 mmol/L (3.5-5.1)
[2017-12-07 06:23] LABS: BUN/Creatinine Ratio 17.2
[2017-12-07 06:38] LABS: Band Neutrophils % (manual) 0; Basophils % (manual) 0 (0.0-2.0); Blast Cells 0; Metamyelocytes % 0; Myelocytes % 0; Promyelocytes % 0
[2017-12-07] MEDS: ACCU-CHEK COMFORT CURVE STRIP VI SCH ×4 (07:00→22:03)
[2017-12-07] MEDS: InsuLIN REG 1unit/0.01ml Soln (100units/ml) SC SCH ×4 (07:00→22:00)
[2017-12-07 08:08] VITALS: BP 107/61
[2017-12-07 08:15] LABS: Eosinophils % (manual) 1 (0-7); Lymphocytes % (manual) 50 (10.0-50.0); Monocytes % (manual) 6 (0-12)
[2017-12-07 08:16] LABS: Reactive Lymphocytes 3
[2017-12-07] MEDS: DILTIAZEM HCL 120MG ER CAP PO SCH (10:00)
[2017-12-07] MEDS: NITROGLYCERIN 0.2MG/HR TOPICAL PATCH TD SCH (10:00)
[2017-12-07] MEDS: METOPROLOL SUCCINATE XL 50 MG TAB PO SCH (10:00)
[2017-12-07] MEDS: ASPirin 81 mg TAB PO SCH (10:27)
[2017-12-07] MEDS: LISINOPRIL 20 MG TAB PO SCH (10:27)
[2017-12-07] MEDS: POTASSIUM CHL 20 Meq TABLET PO SCH (10:28)
[2017-12-07] MEDS: CITALOPRAM HYDROBR 20 MG TAB PO SCH (10:28)
[2017-12-07] MEDS: PANTOPRAZOLE 40 MG TAB PO SCH (10:28)
[2017-12-07] MEDS: hydrOXYzine 25 MG TAB or CAP PO SCH ×2 (10:29→22:00)
[2017-12-07] MEDS: PRAMIPEXOLE DIHYDROCHLORIDE MO 0.25 MG TAB PO SCH (10:29)
[2017-12-07] MEDS: ENOXAPARIN SOD 40 MG/0.4 ML SYRINGE SC SCH (10:30)
[2017-12-07] MEDS: INSULIN LANTUS (GLARGINE) 1 /0.01ml (100units/ml) SC SCH ×2 (10:30→22:03)
[2017-12-07 12:02] VITALS: BP 107/67
[2017-12-07] MEDS ORDERED: POTASSIUM CHL 20 Meq TABLET PO ONE (13:00)
[2017-12-07] MEDS: ATORVASTATIN 20 MG TAB PO SCH (21:58)
[2017-12-07 22:00] VITALS: BP 103/62
[2017-12-08] MEDS: ALBUTEROL SULF 2.5 MG/0.5ML(0.5%) NEB SOLN NEB SCH ×3 (01:04→11:36)
[2017-12-08] MEDS: IPRATROPIUM BROM 0.5 MG/2.5ML INH SOL NEB SCH ×3 (01:04→11:36)
[2017-12-08 05:00] VITALS: BP 139/79
[2017-12-08] MEDS: BUDESONIDE (INHALATION) 0.5 MG/2 ML NEB NEB SCH (05:48)
[2017-12-08] MEDS: SODIUM CHLOR 0.9% PF (SALINE LOCK) 10ML VIAL/SYR IV SCH (06:00)
[2017-12-08] MEDS: FUROSEMIDE 40 MG/4 ML VIAL IV SCH (06:00)
[2017-12-08 06:05] LABS: Basophils # (auto) 0.1 uL; Basophils % (auto) 0.6 % (0.0-2.0); Eosinophils # (auto) 0.1 uL; Eosinophils % (auto) 1.6 % (0.0-7.0); Hematocrit 42.6 % (36.0-46.0); Lymphocytes # (auto) 4.8 uL; Lymphocytes % (auto) 53.6 % (10.0-50.0); Mean Corpuscular Hgb Conc. 32.9 g/dL (32.0-36.0); Mean Corpuscular Volume 91.2 fL (80.0-100.0); Monocytes # (auto) 0.6 uL; Monocytes % (auto) 6.8 % (0.0-12.0); Neutrophils # (auto) 3.4 uL; Neutrophils % (auto) 37.4 % (37.0-80.0); Nucleated Red Blood Cells % 0.2 %; Platelet Count (auto) 199 10^3/uL (140-450); Red Blood Cells 4.67 10^6/uL (4.0-5.20); Red Cell Distribution Width 14.6 % (11.8-14.3)
[2017-12-08 06:25] LABS: BUN/Creatinine Ratio 20.3; Calcium 8.7 mg/dL (8.5-10.1); Potassium 3.6 mmol/L (3.5-5.1)
[2017-12-08] MEDS: InsuLIN REG 1unit/0.01ml Soln (100units/ml) SC SCH (07:00)
[2017-12-08] MEDS: ACCU-CHEK COMFORT CURVE STRIP VI SCH (07:00)
[2017-12-08 09:00] VITALS: BP 125/67
[2017-12-08 09:24] VITALS: BP 128/76
[2017-12-08] MEDS: PANTOPRAZOLE 40 MG TAB PO SCH (10:00)
[2017-12-08] MEDS: INSULIN LANTUS (GLARGINE) 1 /0.01ml (100units/ml) SC SCH (10:00)
[2017-12-08] MEDS: NITROGLYCERIN 0.2MG/HR TOPICAL PATCH TD SCH (10:00)
[2017-12-08] MEDS ORDERED: POTASSIUM CHL 20 Meq TABLET PO SCH (10:00)
[2017-12-08] MEDS: PRAMIPEXOLE DIHYDROCHLORIDE MO 0.25 MG TAB PO SCH (10:00)
[2017-12-08] MEDS: LISINOPRIL 20 MG TAB PO SCH (10:00)
[2017-12-08] MEDS: METOPROLOL SUCCINATE XL 50 MG TAB PO SCH (10:00)
[2017-12-08] MEDS: DILTIAZEM HCL 120MG ER CAP PO SCH (10:00)
[2017-12-08] MEDS: hydrOXYzine 25 MG TAB or CAP PO SCH (10:00)
[2017-12-08] MEDS: CITALOPRAM HYDROBR 20 MG TAB PO SCH (10:00)
[2017-12-08] MEDS: ENOXAPARIN SOD 40 MG/0.4 ML SYRINGE SC SCH (10:00)
[2017-12-08] MEDS: ASPirin 81 mg TAB PO SCH (10:00)
== END 2017-12-08 10:30 | disposition home or self-care (01) | DRG 190 ==
LOC: EDBD 11:39 → ER 11:39 → TELE 11:40 → TELE-CENTR 21:10
PROVIDERS: ADMIT Internal Medicine; ATTEND Internal Medicine
PROC: 5A09357 Assistance with Respiratory Ventilation, Less than 24 Consecutive Hours, Continuous Positive Airway Pressure (ICD-10-PCS; principal; 2017-12-06)
PROC: 5A09357 Assistance with Respiratory Ventilation, Less than 24 Consecutive Hours, Continuous Positive Airway Pressure (ICD-10-PCS; 2017-12-07)
PROC: 5A09357 Assistance with Respiratory Ventilation, Less than 24 Consecutive Hours, Continuous Positive Airway Pressure (ICD-10-PCS; 2017-12-08)
DX: J44.1 Chronic obstructive pulmonary disease with (acute) exacerbation (principal); I50.33 Acute on chronic diastolic (congestive) heart failure; E66.01 Morbid (severe) obesity due to excess calories; F20.9 Schizophrenia, unspecified; G45.9 Transient cerebral ischemic attack, unspecified; Z68.43 Body mass index [BMI] 50.0-59.9, adult; I11.0 Hypertensive heart disease with heart failure; I67.2 Cerebral atherosclerosis; R07.9 Chest pain, unspecified; E87.6 Hypokalemia; E03.9 Hypothyroidism, unspecified; E11.9 Type 2 diabetes mellitus without complications; E78.5 Hyperlipidemia, unspecified; F17.200 Nicotine dependence, unspecified, uncomplicated; F31.9 Bipolar disorder, unspecified; F41.9 Anxiety disorder, unspecified; G47.33 Obstructive sleep apnea (adult) (pediatric); Z79.82 Long term (current) use of aspirin; Z79.899 Other long term (current) drug therapy; Z80.0 Family history of malignant neoplasm of digestive organs; Z80.3 Family history of malignant neoplasm of breast; Z82.49 Family history of ischemic heart disease and other diseases of the circulatory system; Z83.3 Family history of diabetes mellitus; Z86.73 Personal history of transient ischemic attack (TIA), and cerebral infarction without residual deficits; Z88.5 Allergy status to narcotic agent; Z88.8 Allergy status to other drugs, medicaments and biological substances; Z90.49 Acquired absence of other specified parts of digestive tract; Z98.51 Tubal ligation status
CPT/HCPCS: 36415; 70450; 71046; 80048; 80053; 80061; 82550; 82607; 82746; 82962; 83036; 83735; 83880; 84443; 84484; 85007; 85025; 85027; 85379; 85610; 85652; 85730; 86141; 87081; 93005; 93306; 93886; 94640; 94660; 95819; J1815

== ENCOUNTER 2017-12-27 14:19 | Emergency (ER) | payer MEDICARE, MEDICAID ==
[~2017-12-27] VITALS: Ht 162.6 cm; Wt 135.6 kg
[~2017-12-27 14:19] MED LIST changes: -AMLO10TA2 PO; -METF-370 PO; -METO-169 PO
[2017-12-27 14:42] VITALS: BP 198/95
[2017-12-27] MEDS ORDERED: cloNIDine HCL 0.1 MG TAB PO ONE (15:00)
== END 2017-12-27 14:57 | disposition left against medical advice (07) ==
LOC: ER 14:19
DX: I11.0 Hypertensive heart disease with heart failure (principal); E11.9 Type 2 diabetes mellitus without complications; I50.9 Heart failure, unspecified; J44.9 Chronic obstructive pulmonary disease, unspecified; E78.5 Hyperlipidemia, unspecified; E07.9 Disorder of thyroid, unspecified; Z90.49 Acquired absence of other specified parts of digestive tract; Z98.51 Tubal ligation status; Z88.6 Allergy status to analgesic agent; Z79.899 Other long term (current) drug therapy; Z79.4 Long term (current) use of insulin; Z87.891 Personal history of nicotine dependence
CPT/HCPCS: 93005

== ENCOUNTER 2018-03-30 18:27 | Inpatient (IN) | payer MEDICARE, MEDICAID ==
[~2018-03-30] VITALS: Ht 160 cm; Wt 132.9 kg
[2018-03-30] MEDS ORDERED: SODIUM CHLORIDE 0.9% 1,000 ML IVB ONE (19:08)
[2018-03-30] MEDS ORDERED: ONDANSETRON HCL 4 MG/2 ML VIAL IV ONE (19:30)
[2018-03-30 19:49] LABS: Basophils # (auto) 0 uL; Basophils % (auto) 0.3 % (0.0-2.0); Eosinophils # (auto) 0.2 uL; Eosinophils % (auto) 1.7 % (0.0-7.0); Hematocrit 51.2 % (36.0-46.0); Hemoglobin 16.8 g/dL (12.2-16.2); Lymphocytes % (auto) 43.7 % (10.0-50.0); Mean Corpuscular Hemoglobin 30.3 pg (28.0-32.0); Mean Corpuscular Hgb Conc. 32.8 g/dL (32.0-36.0); Mean Corpuscular Volume 92.2 fL (80.0-100.0); Monocytes # (auto) 0.8 uL; Monocytes % (auto) 6.6 % (0.0-12.0); Neutrophils # (auto) 5.5 uL; Neutrophils % (auto) 47.7 % (37.0-80.0); Nucleated Red Blood Cells % 0.1 %; Platelet Count (auto) 244 10^3/uL (140-450); Red Blood Cells 5.55 10^6/uL (4.0-5.20); Red Cell Distribution Width 13.8 % (11.8-14.3); White Blood Cell 11.5 10^3/uL (4.4-10.8)
[2018-03-30 20:26] LABS: Alanine Aminotransferase 25 U/L (13-56); Alkaline Phosphatase 117 U/L (45-117); Anion Gap 11 (5-15); Aspartate Aminotransferase 23 U/L (15-37); BUN/Creatinine Ratio 24.3; Blood Alcohol < 3.0 mg/dL (0-5); Blood Urea Nitrogen 33 mg/dL (7-18); Calcium 9.3 mg/dL (8.5-10.1); Carbon Dioxide 26 mmol/L (21-32); Chloride 104 mmol/L (98-107); GFR African American 52 mL/min; GFR Non-African American 43 mL/min; Glucose 136 mg/dL (74-106); Magnesium 2.3 mg/dL (1.6-2.6); Sodium 141 mmol/L (136-145); Total Protein 7.5 g/dL (6.4-8.2)
[2018-03-30 20:39] LABS: Partial Thromboplastin Time 22.8 sec (23.78-33.04); Prothrombin Time 10.7 sec (9.27-12.13)
[2018-03-30] MEDS ORDERED: ASPirin-EC 81 mg tab PO ONE (21:15)
[2018-03-30] MEDS ORDERED: POTASSIUM CHL 20 Meq TABLET PO ONE (21:15)
[2018-03-30] MEDS ORDERED: TEMAZEPAM 15 MG CAP PO PRN (22:15)
[2018-03-30] MEDS ORDERED: ONDANSETRON HCL 4 MG/2 ML VIAL IV PRN (22:15)
[2018-03-30] MEDS ORDERED: DEXTROSE (50%) 50ML SYRG IV PRN (22:15)
[2018-03-30] MEDS ORDERED: ACETAMINOPHEN 325 MG TAB PO PRN (22:15)
[2018-03-30 22:23] LABS: Urine Bacteria FEW /hpf (None Seen); Urine Blood Negative /uL (Negative); Urine Hyaline Cast MANY /lpf (0 - 2); Urine Mucus FEW (None Seen); Urine Specific Gravity 1.022 (1.001-1.035); Urine WBC 2 /hpf (0 - 5)
[2018-03-30 22:40] VITALS: BP 142/81
[2018-03-30 22:44] LABS: Alcohol, Urine < 3.0 mg/dL (0-5); Amphetamine Screen, Urine POSITIVE (NEGATIVE); Barbiturate Scree,Urine NEGATIVE (NEGATIVE); Benzodiazephine Screen, Urine NEGATIVE (NEGATIVE); Cannabinoid Screen, Urine POSITIVE (NEGATIVE); Cocaine Screen, Urine NEGATIVE (NEGATIVE); Opiate Scree,Urine NEGATIVE (NEGATIVE); Phencyclidine Screen, Urine NEGATIVE (NEGATIVE)
[2018-03-31] VITALS (7 sets, daily range): BP systolic 134–158; BP diastolic 67–84
[2018-03-31] MEDS: ACCU-CHEK COMFORT CURVE STRIP VI SCH ×4 (00:30→18:00)
[2018-03-31] MEDS: InsuLIN REG 1unit/0.01ml Soln (100units/ml) SC SCH ×4 (05:36→18:00)
[2018-03-31] MEDS: LEVOTHYROXINE SODIUM 50 MCG TAB PO SCH (06:34)
[2018-03-31 06:43] LABS: Basophils # (auto) 0.1 uL; Basophils % (auto) 0.5 % (0.0-2.0); Eosinophils # (auto) 0.2 uL; Eosinophils % (auto) 1.8 % (0.0-7.0); Hematocrit 44.8 % (36.0-46.0); Lymphocytes % (auto) 46.3 % (10.0-50.0); Mean Corpuscular Hemoglobin 30.7 pg (28.0-32.0); Mean Corpuscular Hgb Conc. 33.5 g/dL (32.0-36.0); Mean Corpuscular Volume 91.5 fL (80.0-100.0); Monocytes # (auto) 0.8 uL; Monocytes % (auto) 7.6 % (0.0-12.0); Neutrophils # (auto) 4.8 uL; Neutrophils % (auto) 43.8 % (37.0-80.0); Nucleated Red Blood Cells % 0.2 %; Platelet Count (auto) 230 10^3/uL (140-450); Red Cell Distribution Width 13.5 % (11.8-14.3); White Blood Cell 10.9 10^3/uL (4.4-10.8)
[2018-03-31 07:05] LABS: Albumin 3.3 g/dL (3.4-5.0); BUN/Creatinine Ratio 31.6; Bilirubin, Total 1.2 mg/dL (0.2-1.0); Calcium 8.6 mg/dL (8.5-10.1); Potassium 3.1 mmol/L (3.5-5.1); Total Protein 6.3 g/dL (6.4-8.2)
[2018-03-31] MEDS: ENOXAPARIN SOD 30 MG/0.3 ML SYRINGE SC SCH (10:00)
[2018-03-31] MEDS: ASPirin 81 mg TAB PO SCH (11:12)
[2018-03-31] MEDS: FUROSEMIDE 40 MG TAB PO SCH (11:13)
[2018-03-31] MEDS: PANTOPRAZOLE 40 MG TAB PO SCH (11:14)
[2018-03-31] MEDS: CITALOPRAM HYDROBR 20 MG TAB PO SCH (11:14)
[2018-03-31] MEDS: LISINOPRIL 20 MG TAB PO SCH (11:15)
[2018-03-31] MEDS ORDERED: POTASSIUM CHL 20 Meq TABLET PO ONE ×2 (14:30→20:00)
[2018-03-31] MEDS ORDERED: LORazepam 0.5 MG TAB PO PRN (17:15)
[2018-03-31] MEDS ORDERED: ATORVASTATIN 20 MG TAB PO SCH (22:00)
[2018-03-31] MEDS: ATORVASTATIN 20 MG TAB PO SCH (22:02)
[2018-04-01] MEDS: InsuLIN REG 1unit/0.01ml Soln (100units/ml) SC SCH ×5 (00:07→18:27)
[2018-04-01] MEDS: ACCU-CHEK COMFORT CURVE STRIP VI SCH ×5 (00:08→18:27)
[2018-04-01 05:00] VITALS: BP 178/88
[2018-04-01] MEDS: LEVOTHYROXINE SODIUM 50 MCG TAB PO SCH (06:20)
[2018-04-01] MEDS ORDERED: cloNIDine HCL 0.1 MG TAB PO ONE ×2 (07:30→08:15)
[2018-04-01 09:00] VITALS: BP 176/70
[2018-04-01] MEDS: LISINOPRIL 20 MG TAB PO SCH (10:00)
[2018-04-01] MEDS: ENOXAPARIN SOD 30 MG/0.3 ML SYRINGE SC SCH (10:00)
[2018-04-01] MEDS: CITALOPRAM HYDROBR 20 MG TAB PO SCH (10:28)
[2018-04-01] MEDS: POTASSIUM CHL 20 Meq TABLET PO SCH (10:28)
[2018-04-01] MEDS: ASPirin 81 mg TAB PO SCH (10:28)
[2018-04-01] MEDS: FUROSEMIDE 40 MG TAB PO SCH (10:29)
[2018-04-01] MEDS: PANTOPRAZOLE 40 MG TAB PO SCH (10:29)
[2018-04-01] MEDS ORDERED: IOHEXOL 350 MG/ML 100ML IJ ONE (10:43)
[2018-04-01 12:00] VITALS: BP 129/44
[2018-04-01 16:30] VITALS: BP 136/61
[2018-04-01 22:00] VITALS: BP 146/66
[2018-04-01] MEDS: ATORVASTATIN 20 MG TAB PO SCH (22:43)
[2018-04-02] MEDS: InsuLIN REG 1unit/0.01ml Soln (100units/ml) SC SCH ×3 (00:47→12:00)
[2018-04-02] MEDS: ACCU-CHEK COMFORT CURVE STRIP VI SCH ×3 (00:47→12:08)
[2018-04-02 05:00] VITALS: BP 190/126
[2018-04-02] MEDS: LEVOTHYROXINE SODIUM 50 MCG TAB PO SCH (06:02)
[2018-04-02 08:10] VITALS: BP 190/126
[2018-04-02 09:00] VITALS: BP 148/88
[2018-04-02] MEDS: PANTOPRAZOLE 40 MG TAB PO SCH (10:00)
[2018-04-02] MEDS: ENOXAPARIN SOD 30 MG/0.3 ML SYRINGE SC SCH (10:00)
[2018-04-02] MEDS: ASPirin 81 mg TAB PO SCH (10:17)
[2018-04-02] MEDS: CITALOPRAM HYDROBR 20 MG TAB PO SCH (10:18)
[2018-04-02] MEDS: LISINOPRIL 20 MG TAB PO SCH (10:19)
[2018-04-02] MEDS: POTASSIUM CHL 20 Meq TABLET PO SCH (10:19)
[2018-04-02] MEDS: FUROSEMIDE 40 MG TAB PO SCH (10:21)
[2018-04-02 11:58] VITALS: BP 148/88
[2018-04-02 13:03] VITALS: BP 159/79
== END 2018-04-02 14:55 | disposition home or self-care (01) | DRG 683 ==
LOC: EDBD 18:27 → ER 18:30 → OVERFLOW 18:31 → CENTRAL 22:35
PROVIDERS: ADMIT Nurse Practitioner; ATTEND Family Medicine
PROC: 5A09357 Assistance with Respiratory Ventilation, Less than 24 Consecutive Hours, Continuous Positive Airway Pressure (ICD-10-PCS; principal; 2018-03-30)
PROC: 5A09357 Assistance with Respiratory Ventilation, Less than 24 Consecutive Hours, Continuous Positive Airway Pressure (ICD-10-PCS; 2018-03-31)
PROC: 5A09357 Assistance with Respiratory Ventilation, Less than 24 Consecutive Hours, Continuous Positive Airway Pressure (ICD-10-PCS; 2018-04-01)
PROC: 5A09357 Assistance with Respiratory Ventilation, Less than 24 Consecutive Hours, Continuous Positive Airway Pressure (ICD-10-PCS; 2018-04-01)
DX: N17.9 Acute kidney failure, unspecified (principal); I13.0 Hypertensive heart and chronic kidney disease with heart failure and stage 1 through stage 4 chronic kidney disease, or unspecified chronic kidney disease; J44.1 Chronic obstructive pulmonary disease with (acute) exacerbation; G45.9 Transient cerebral ischemic attack, unspecified; Z68.43 Body mass index [BMI] 50.0-59.9, adult; F20.9 Schizophrenia, unspecified; F31.9 Bipolar disorder, unspecified; N18.3 Chronic kidney disease, stage 3 (moderate); E87.6 Hypokalemia; D75.1 Secondary polycythemia; E03.9 Hypothyroidism, unspecified; E11.22 Type 2 diabetes mellitus with diabetic chronic kidney disease; E66.01 Morbid (severe) obesity due to excess calories; F41.1 Generalized anxiety disorder; F17.210 Nicotine dependence, cigarettes, uncomplicated; E78.5 Hyperlipidemia, unspecified; F12.10 Cannabis abuse, uncomplicated; F15.10 Other stimulant abuse, uncomplicated; G47.33 Obstructive sleep apnea (adult) (pediatric); I50.9 Heart failure, unspecified; K21.9 Gastro-esophageal reflux disease without esophagitis; Z79.82 Long term (current) use of aspirin; Z79.899 Other long term (current) drug therapy; Z88.5 Allergy status to narcotic agent; Z80.0 Family history of malignant neoplasm of digestive organs; Z80.3 Family history of malignant neoplasm of breast; Z82.49 Family history of ischemic heart disease and other diseases of the circulatory system; Z86.73 Personal history of transient ischemic attack (TIA), and cerebral infarction without residual deficits; Z83.3 Family history of diabetes mellitus; Z90.49 Acquired absence of other specified parts of digestive tract; R56.9 Unspecified convulsions
CPT/HCPCS: 36415; 70450; 71045; 71275; 80053; 80307; 80320; 81001; 82962; 83735; 84484; 85025; 85379; 85610; 85730; 87081; 93005; 93970; 94660; 94761; 96361; 96374; J1815; J2405